=== PATIENT | female | born 1950 | race Caucasian/White ===

== ENCOUNTER 2019-10-29 00:37 | Emergency (ER) | payer MEDICARE ==
[~2019-10-29] VITALS: Ht 154.9 cm; Wt 68.0 kg
[~2019-10-29 00:37] MED LIST: ALBU18HF2 INH; ASPI-1265 PO; ATOR10TA87 PO; BUDE10.2 INH; CA C1TAB70; CHOL10008 PO; CYCL-394 PO; DULO-31 PO; IPRA3AMP31 IH; LEVE750T6 PO; METF-900 PO; METO-395 PO; MULT-85 PO; NAPR220T67 PO; OMEP40CA13 PO; OXYB10TA4 PO; UBIQ100C3 PO
[2019-10-29 01:00] LABS: BASOPHILS # (AUTO) 0.1 X10'3 (0-0.2); BASOPHILS % (AUTO) 0.9 % (0-1); EOSINOPHILS # (AUTO) 0.5 X10'3 (0-0.9); EOSINOPHILS % (AUTO) 4.9 % (0-6); HEMATOCRIT 33.5 % (35.0-45.0); LYMPHOCYTES # (AUTO) 1.1 X10'3 (1.1-4.8); LYMPHOCYTES % (AUTO) 11.6 % (21-51); MEAN CORPUSCULAR HEMOGLOBIN 28.1 PG (27.0-31.0); MEAN CORPUSCULAR HGB CONC 32.8 g/dL (33.0-36.5); MEAN CORPUSCULAR VOLUME 85.8 FL (78-98); MEAN PLATELET VOLUME 8.1 FL (7.4-10.4); MONOCYTES # (AUTO) 0.9 X10'3 (0-0.9); MONOCYTES % (AUTO) 9.3 % (2-12); NEUTROPHILS # (AUTO) 7.1 X10'3 (1.8-7.7); NEUTROPHILS % (AUTO) 73.3 % (42-75); PLATELET COUNT 168 X10'3 (140-440); RED CELL DISTRIBUTION WIDTH 14.4 % (11.5-14.5); WHITE BLOOD COUNT 9.6 X10'3 (4.5-11.0)
[2019-10-29] MEDS ORDERED: ipratropium/albuterol 3ml nebule NEB ONE (01:10)
[2019-10-29 01:17] LABS: ALANINE AMINOTRANSFERASE 21 U/L (12-78); ALBUMIN 3.4 G/DL (3.4-5.0); ALKALINE PHOSPHATASE 82 IU/L (46-116); ANION GAP 4 (8-16); ASPARTATE AMINO TRANSFERASE 17 U/L (10-37); BILIRUBIN,TOTAL 0.5 MG/DL (0.1-1.0); BLOOD UREA NITROGEN 10 MG/DL (7-18); CALCIUM 8.2 MG/DL (8.5-10.1); CHLORIDE 102 MMOL/L (99-107); CREATININE 1.11 MG/DL (0.40-0.90); GLUCOSE 134 MG/DL (70-104); POTASSIUM 4.3 MMOL/L (3.5-5.1); SODIUM 135 MMOL/L (135-145); TOTAL CARBON DIOXIDE 28.8 MMOL/L (24-32); TOTAL PROTEIN 6.9 G/DL (6.4-8.2); eGFR 49 ML/MIN
--- NOTE | 2019-10-29 01:44 | NUR ---
PT WAS MAINTAINING O2 SATS ABOVE 95 ON 4L. TITRATED O2 DOWN TO 3L. WILL CONTINUE TO MONITOR
[2019-10-29] MEDS ORDERED: methylPREDNISolone sod succ 125mg/2ml vial IV ONE (01:45)
[2019-10-29] MEDS ORDERED: cyclobenzaprine 10mg tablet PO ONE (04:30)
[2019-10-29 04:45] VITALS: BP 124/73
== END 2019-10-29 04:46 | disposition home or self-care (01) ==
LOC: ER 00:38
DX: J44.1 Chronic obstructive pulmonary disease with (acute) exacerbation (principal); Z79.82 Long term (current) use of aspirin; Z79.899 Other long term (current) drug therapy
CPT/HCPCS: 36415; 71045; 80053; 83880; 84484; 85025; 93005; 94640; 96374; 99285; J2930; 94760